=== PATIENT | male | born 1980 | race Caucasian/White ===

== ENCOUNTER 2022-02-19 09:55 | Emergency (ER) | payer BC ==
[2022-02-19 10:10] VITALS: BP 119/78; TEMP 98.1; BMI 41.8
[2022-02-19 12:22] LABS: BASO % 0.6 % (0-2.0); EOS % 1.7 % (0-4.5); HEMOGLOBIN 15.7 GM/dL (11.7-16.9); LYMPH % 31.3 % (8-40); MCH 29.8 pg (25.7-33.7); MCHC 33.4 g/dl (32.0-35.9); MEAN CELL VOLUME 89.3 fl (80-96); MEAN PLT VOLUME 10.2 fl (7.5-11.1); NEUT % 59.4 % (42.8-82.8); PLATELET COUNT 152 10^3/uL (134-434); RBC 5.26 M/mm3 (4.00-5.60); RDW 15.2 % (11.9-15.9); WHITE BLOOD COUNT 8.4 K/mm3 (4.0-10.0)
[2022-02-19 12:43] LABS: CALCIUM 9.2 mg/dL (8.5-10.1)
[2022-02-19 12:44] LABS: ALBUMIN 3.7 g/dl (3.4-5.0); BLOOD UREA NITROGEN 12.6 mg/dL (7-18)
[2022-02-19 12:47] LABS: CREATININE 0.6 mg/dL (0.55-1.3)
[2022-02-19 12:48] LABS: BILIRUBIN,TOTAL 0.6 mg/dL (0.2-1); TOT PROT 7.1 g/dl (6.4-8.2)
[2022-02-19] MEDS ORDERED: morphine CARPU-JECT 2 MG/1 ML DISP.SYRIN IVPUSH ONE (13:10)
[2022-02-19 13:19] LABS: ERYTHROCYTE SEDIMENTATION RATE 4 mm/hr (0-10)
[2022-02-19 14:25] LABS: BF WBC & OTHER NUCLEATED CELLS 511 /mm3
[2022-02-19 14:44] LABS: BODY FLUID MACROPHAGES 84 %
[2022-02-19 17:25] VITALS: PULSE 79
== END 2022-02-19 16:52 | disposition home or self-care (01) ==
LOC: JER 09:55
PROC: 0S9D3ZZ Drainage of Left Knee Joint, Percutaneous Approach (ICD-10-PCS; principal; 2022-02-19)
PROC: 3E033GC Introduction of Other Therapeutic Substance into Peripheral Vein, Percutaneous Approach (ICD-10-PCS; 2022-02-19)
DX: M70.52 Other bursitis of knee, left knee (principal)
CPT/HCPCS: 36415; 72170-TC-FY; 73502-TC-RT-FY; 73562-TC-RT-FY; 80053; 84132; 85025; 85651; 86140; 87070; 87075; 87205; 89060; 99284-25

== ENCOUNTER 2024-07-12 10:18 | Emergency (ER) | payer BC ==
[2024-07-12 10:50] VITALS: BMI 39.9
[2024-07-12] MEDS ORDERED: TENECTEplase 50 MG VIAL IVPUSH ONE (11:18)
[2024-07-12 11:40] LABS: BASO % 0.8 % (0-2.0); EOS % 1.3 % (0-4.5); HEMATOCRIT 44.4 % (35.4-49); HEMOGLOBIN 14.9 GM/dL (11.7-16.9); LYMPH % 37.9 % (8-40); MCH 29.4 pg (25.7-33.7); MCHC 33.4 g/dl (32.0-35.9); MEAN CELL VOLUME 88.1 fl (80-96); MONO % 6.7 % (3.8-10.2); NEUT % 53.3 % (42.8-82.8); PLATELET COUNT 127 10^3/uL (134-434); RBC 5.04 M/mm3 (4.00-5.60); RDW 14.6 % (11.9-15.9); WHITE BLOOD COUNT 6.5 K/mm3 (4.0-10.0)
[2024-07-12 11:45] LABS: INR 1.14 (0.83-1.09); PROTHROMBIN TIME (PATIENT) 13.1 SEC (9.7-13.0)
[2024-07-12 11:47] LABS: ACTIVATED PTT 30.7 SECONDS (25.2-36.5)
[2024-07-12 11:54] LABS: POTASSIUM 4.6 mmol/L (3.5-5.1)
[2024-07-12] MEDS: TENECTEplase 50 MG VIAL IVPUSH ONE (11:59)
[2024-07-12] MEDS: NORMAL SALINE FLUSH 0.9% 5 ML SYRINGE IVPUSH SCH (11:59)
[2024-07-12 12:01] LABS: CREATININE 0.7 mg/dL (0.55-1.3)
[2024-07-12 12:02] LABS: TOT PROT 6.8 g/dl (6.4-8.2)
[2024-07-12 12:04] LABS: BILIRUBIN,TOTAL 0.8 mg/dL (0.2-1)
[2024-07-12 12:46] VITALS: TEMP 98
[2024-07-12 13:19] VITALS: BP 93/70; PULSE 74; RESP 17
== END 2024-07-12 13:26 | disposition short-term general hospital (02) ==
LOC: JER 10:18
PROC: 3E033GC Introduction of Other Therapeutic Substance into Peripheral Vein, Percutaneous Approach (ICD-10-PCS; principal; 2024-07-12)
DX: R41.82 Altered mental status, unspecified (principal); I66.02 Occlusion and stenosis of left middle cerebral artery
CPT/HCPCS: 36415; 70450-TC; 70496-TC; 70498-TC; 80053; 80061; 82550; 82553; 83036; 84484; 85025; 85610; 85730; 86850; 86900; 86901; 93005; 93010; 99291; J3101; Q9967